=== PATIENT | male | born 1980 | race Caucasian/White ===

== ENCOUNTER 2020-11-04 17:52 | Emergency (ER) | payer OTHER ==
[~2020-11-04] VITALS: Ht 170.2 cm; Wt 68.0 kg
[2020-11-04 18:47] VITALS: BP 112/68
== END 2020-11-04 19:00 | disposition home or self-care (01) ==
LOC: ER 17:52
DX: F10.920 Alcohol use, unspecified with intoxication, uncomplicated (principal); F32.9 Major depressive disorder, single episode, unspecified